=== PATIENT | female | born 1970 | race Caucasian/White ===

== ENCOUNTER → 2017-07-03 | Emergency (ER) | payer OTHER ==
[~2017-07-03] VITALS: Ht 162.6 cm; Wt 104.3 kg
== END | disposition home or self-care (01) ==
LOC: ER 14:18
DX: S91.312A Laceration without foreign body, left foot, initial encounter (principal); W45.8XXA Other foreign body or object entering through skin, initial encounter; Y93.89 Activity, other specified; Y92.89 Other specified places as the place of occurrence of the external cause; Y99.8 Other external cause status